=== PATIENT | male | born 1960 | race African-American/Black ===

== ENCOUNTER 2016-11-14 23:36 | Emergency (ER) | payer SELFPAY ==
[2016-11-15] MEDS ORDERED: Aspirin Low Dose CHEW TAB* 81 MG PO ONE (00:29)
[2016-11-15 01:39] LABS: Albumin 4.4 g/dL (3.2-5.2); BUN/Creatinine Ratio 11.5 (8-20); Calcium 9.5 mg/dL (8.6-10.3); EGFR African American 105.4 (>60); EGFR Non-African American 81.9 (>60); Globulin 2.9 g/dL (2-4); Magnesium 2.3 mg/dL (1.9-2.7); Total Bilirubin 0.3 mg/dL (0.2-1.0); Total Protein 7.3 g/dL (6.4-8.9)
[2016-11-15 01:41] LABS: Troponin I 0.01 ng/mL (<0.04)
[2016-11-15 01:43] LABS: Potassium 3.6 mmol/L (3.5-5.0)
[2016-11-15 03:00] LABS: Hematocrit 39 % (42-52); Hemoglobin 13.7 g/dl (14.0-18.0); Mean Corpuscular HGB Conc 35 g/dl (31-36); Mean Corpuscular Hemoglobin 40 pg (27-31); Mean Platelet Volume 7 um3 (7.4-10.4); Red Blood Count 3.43 10^6/ul (4.0-5.4); Red Cell Distribution Width 14 % (10.5-15); White Blood Count 6.5 10^3/ul (3.5-10.8)
[2016-11-15 03:01] LABS: Mean Corpuscular Volume 115 fL (80-94)
[2016-11-15 04:26] VITALS: BP 151/101
--- NOTE | 2016-11-15 05:56 | ED ---
Matthew Calderon Matthew, scribed for Kurtis Barroso on 11/15/16 at 0029 . HPI Chest Pain - HPI Summary HPI Summary: A 55 y/o male presents to the ED with intermittent chest pain since an hour ago. The pain is described fluttering and rated 6/10 in severity. The patient was sitting down when the pain began. He denies nausea, vomiting, dizziness, SOB , and diaphoresis. He doesn't normally have chest pain with exertion. The pain is worse with movements and deep breaths. No Hx of CAD, HTN, Diabetes. FHx of CAD. - History of Current Complaint Chief Complaint: EDChestPainROMI Time Seen by Provider: 11/15/16 00:16 Hx Obtained From: Patient Onset/Duration: Started Hours Ago, Atraumatic, Still Present Timing: Intermittent Initial Severity: Moderate Current Severity: Moderate Pain Intensity: 6 Pain Scale Used: 0-10 Numeric Chest Pain Location: Left Lateral Chest Pain Radiates: No Character: Fluttering Associated Signs and Symptoms: Positive: Chest Pain. Negative: Dizziness, Shortness of Breath, Diaphoresis, Nausea, Abdominal Pain - Allergy/Home Medications Allergies/Adverse Reactions: Allergies Allergy/AdvReac Type Severity Reaction Status Date / Time Penicillins Allergy Rash Verified 08/01/14 07:28 Shellfish Allergy Allergy Rash Verified 08/01/14 07:28 PMH/Surg Hx/FS Hx/Imm Hx Endocrine/Hematology History: Denies: Hx Diabetes Cardiovascular History: Denies: Hx Hypertension Infectious Disease History: No Infectious Disease History: Denies: Traveled Outside the [place] in Last 30 Days - Family History Known Family History: Positive: Cardiac Disease - Social History Alcohol Use: None Substance Use Type: Reports: None Smoking Status (MU): Never Smoked Tobacco Review of Systems Constitutional: Negative Negative: Skin Diaphoresis Eyes: Negative ENT: Negative Positive: Chest Pain Respiratory: Negative Negative: Shortness Of Breath Gastrointestinal: Negative Negative: Vomiting, Nausea Genitourinary: Negative Musculoskeletal: Negative Skin: Negative Neurological: Negative Psychological: Normal All Other Systems Reviewed And Are Negative: Yes Physical Exam Triage Information Reviewed: Yes Vital Signs On Initial Exam: Initial Vitals Temp Pulse Resp BP Pulse Ox 98.5 F 77 18 183/111 100 11/14/16 23:38 11/14/16 23:38 11/14/16 23:38 11/14/16 23:38 11/14/16 23:38 Vital Signs Reviewed: Yes Appearance: Positive: No Pain Distress Skin: Positive: Warm, Skin Color Reflects Adequate Perfusion, Dry Head/Face: Positive: Normal Head/Face Inspection Eyes: Positive: EOMI, ALIYAH ENT: Positive: Normal ENT inspection Neck: Positive: Supple, Nontender Respiratory/Lung Sounds: Positive: Clear to Auscultation, Breath Sounds Present Cardiovascular: Positive: RRR, Pulses are Symmetrical in both Upper and Lower Extremities Abdomen Description: Positive: Nontender, Soft, Other: - abdominal scars Bowel Sounds: Positive: Present Musculoskeletal: Positive: Normal, Strength/ROM Intact Neurological: Positive: Normal, Sensory/Motor Intact, Alert, Oriented to Person Place, Time Psychiatric: Positive: Affect/Mood Appropriate Diagnostics - Vital Signs Vital Signs Temp Pulse Resp BP Pulse Ox 11/14/16 23:38 98.5 F 77 18 183/111 100 - Laboratory Lab Results: Lab Results 11/15/16 11/15/16 11/15/16 Range/Units 01:00 01:00 01:00 WBC 6.5 (3.5-10.8) 10^3/ul RBC 3.43 L (4.0-5.4) 10^6/ul Hgb 13.7 L (14.0-18.0) g/dl Hct 39 L (42-52) % MCV 115 H (80-94) fL MCH 40 H (27-31) pg MCHC 35 (31-36) g/dl RDW 14 (10.5-15) % Plt Count 269 (150-450) 10^3/ul MPV 7 L (7.4-10.4) um3 Neut % (Auto) 60.2 (38-83) % Lymph % (Auto) 28.9 (25-47) % [place] % (Auto) 4.9 (1-9) % Eos % (Auto) 5.1 (0-6) % Baso % (Auto) 0.9 (0-2) % Absolute Neuts (auto) 3.9 (1.5-7.7) 10^3/ul Absolute Lymphs (auto) 1.9 (1.0-4.8) 10^3/ul Absolute Monos (auto) 0.3 (0-0.8) 10^3/ul Absolute Eos (auto) 0.3 (0-0.6) 10^3/ul Absolute Basos (auto) 0.1 (0-0.2) 10^3/ul Absolute Nucleated RBC 0.01 10^3/ul Nucleated RBC % 0.2 INR (Anticoag Therapy) 0.90 (0.89-1.11) APTT 35.2 (26.0-36.3) seconds Sodium 136 (133-145) mmol/L Potassium 3.6 (3.5-5.0) mmol/L Chloride 103 (101-111) mmol/L Carbon Dioxide 25 (22-32) mmol/L Anion Gap 8 (2-11) mmol/L BUN 11 (6-24) mg/dL Creatinine 0.96 (0.67-1.17) mg/dL Est GFR ( Amer) 105.4 (>60) Est GFR (Non-Af Amer) 81.9 (>60) BUN/Creatinine Ratio 11.5 (8-20) Glucose 101 H (70-100) mg/dL Calcium 9.5 (8.6-10.3) mg/dL Magnesium 2.3 (1.9-2.7) mg/dL Total Bilirubin 0.30 (0.2-1.0) mg/dL AST 28 (13-39) U/L ALT 32 (7-52) U/L Alkaline Phosphatase 98 (34-104) U/L Troponin I 0.01 (<0.04) ng/mL B-Natriuretic Peptide ( - 100) pg/mL Total Protein 7.3 (6.4-8.9) g/dL Albumin 4.4 (3.2-5.2) g/dL Globulin 2.9 (2-4) g/dL Albumin/Globulin Ratio 1.5 (1-3) 11/15/16 Range/Units 01:00 WBC (3.5-10.8) 10^3/ul RBC (4.0-5.4) 10^6/ul Hgb (14.0-18.0) g/dl Hct (42-52) % MCV (80-94) fL MCH (27-31) pg MCHC (31-36) g/dl RDW (10.5-15) % Plt Count (150-450) 10^3/ul MPV (7.4-10.4) um3 Neut % (Auto) (38-83) % Lymph % (Auto) (25-47) % [place] % (Auto) (1-9) % Eos % (Auto) (0-6) % Baso % (Auto) (0-2) % Absolute Neuts (auto) (1.5-7.7) 10^3/ul Absolute Lymphs (auto) (1.0-4.8) 10^3/ul Absolute Monos (auto) (0-0.8) 10^3/ul Absolute Eos (auto) (0-0.6) 10^3/ul Absolute Basos (auto) (0-0.2) 10^3/ul Absolute Nucleated RBC 10^3/ul Nucleated RBC % INR (Anticoag Therapy) (0.89-1.11) APTT (26.0-36.3) seconds Sodium (133-145) mmol/L Potassium (3.5-5.0) mmol/L Chloride (101-111) mmol/L Carbon Dioxide (22-32) mmol/L Anion Gap (2-11) mmol/L BUN (6-24) mg/dL Creatinine (0.67-1.17) mg/dL Est GFR ( Amer) (>60) Est GFR (Non-Af Amer) (>60) BUN/Creatinine Ratio (8-20) Glucose (70-100) mg/dL Calcium (8.6-10.3) mg/dL Magnesium (1.9-2.7) mg/dL Total Bilirubin (0.2-1.0) mg/dL AST (13-39) U/L ALT (7-52) U/L Alkaline Phosphatase (34-104) U/L Troponin I (<0.04) ng/mL B-Natriuretic Peptide 14 ( - 100) pg/mL Total Protein (6.4-8.9) g/dL Albumin (3.2-5.2) g/dL Globulin (2-4) g/dL Albumin/Globulin Ratio (1-3) Result Diagrams: 11/15/16 01:00 11/15/16 01:00 Lab Statement: Any lab studies that have been ordered have been reviewed, and results considered in the medical decision making process. - Radiology CXR Xray Interpretation: No Acute Changes Radiology Interpretation Completed By: ED Physician - EKG 00:19 Cardiac Rate: NL - 64 bpm EKG Rhythm: Sinus Rhythm ST Segment: Non-Specific Chest Pain Course/Dx - Course Assessment/Plan: A 55 y/o male presents to the ED with intermittent chest pain since an hour ago. The pain is described fluttering and rated 6/10 in severity. The patient was sitting down when the pain began. He denies nausea, vomiting, dizziness, SOB, and diaphoresis. He doesn't normally have chest pain with exertion. The pain is worse with movements and deep breaths. No Hx of CAD, HTN, Diabetes. FHx of CAD. Labs were reviewed and showed troponin of 0.01. EKG shows sinus rhythm at 64 bpm with non-specific ST changes. CXR showed no acute changes. Discussed with the patient that he needed to be admitted for second troponin, but he refused and left AMA. The patient was informed of the risks of leaving AMA numerous times. - Diagnoses Provider Diagnoses: Chest pain, Angina pectoris Discharge - Discharge Plan Condition: Fair Disposition: AGAINST MEDICAL ADVICE Referrals: Ceferino Mallory MD [Primary Care Provider] - The documentation as recorded by the Matthew fuentes Matthew accurately reflects the service I personally performed and the decisions made by Dharmesh prather Emmanuel.
--- NOTE | 2016-11-15 08:15 | RAD ---
Indication: Chest pain. Single frontal view of the chest performed at 0039 hours was reviewed. Comparison is made with previous exam dated November 19, 2007. No mediastinal shift is noted. Heart is of normal size and configuration. Lung sosa appear clear. IMPRESSION: NO ACTIVE CARDIOPULMONARY DISEASE IS NOTED.
== END 2016-11-15 04:22 | disposition left against medical advice (07) ==
LOC: ED 23:36
DX: I20.8 Other forms of angina pectoris (principal); R07.9 Chest pain, unspecified
CPT/HCPCS: 36415; 71010; 80053; 83735; 83880; 84484; 85025; 85610; 85730; 93005; 99283; A9270-GY

== ENCOUNTER 2019-07-11 15:55 | Emergency (ER) | payer BC ==
[2019-07-11 16:31] VITALS: BP 156/100
--- NOTE | 2019-07-11 17:22 | UC ---
FLU HPI - HPI Summary HPI Summary: 58 year old female with c/o increased sinus pain, pressure. Started " a few days ago". Worsening since onset. no fever, chills. + fatigue. - History of Current Complaint Chief Complaint: UCRespiratory Stated Complaint: URI Time Seen by Provider: 07/11/19 17:22 Pain Intensity: 0 - Allergy/Home Medications Allergies/Adverse Reactions: Allergies Allergy/AdvReac Type Severity Reaction Status Date / Time Penicillins Allergy Rash Verified 07/11/19 16:32 shellfish derived Allergy Rash Verified 07/11/19 16:32 PMH/Surg Hx/FS Hx/Imm Hx Previously Healthy: Yes - Surgical History Surgical History: Yes Surgery Procedure, Year, and Place: cholostomy 1989 - Family History Known Family History: Positive: Cardiac Disease - Social History Alcohol Use: None Substance Use Type: None Smoking Status (MU): Former Smoker When Did the Patient Quit Smoking/Using Tobacco: 15 years ago Review of Systems All Other Systems Reviewed And Are Negative: Yes Constitutional: Positive: Fatigue. Negative: Fever, Chills ENT: Positive: Nasal Discharge, Sinus Congestion, Sinus Pain/Tenderness. Negative: Sore Throat Respiratory: Positive: Cough Is Patient Immunocompromised?: No Physical Exam Triage Information Reviewed: Yes Appearance: No Pain Distress, Well-Nourished, Ill-Appearing - mild Vital Signs: Initial Vital Signs Temp 98.6 F 07/11/19 16:26 Pulse 85 07/11/19 16:26 Resp 16 07/11/19 16:26 BP 156/100 07/11/19 16:26 Pulse Ox 100 07/11/19 16:26 Vital Signs Reviewed: Yes Eyes: Positive: Conjunctiva Clear ENT: Positive: Pharynx normal, TMs normal, Sinus tenderness - b/l frontal, amx, Uvula midline. Negative: Pharyngeal erythema, Tonsillar swelling, Tonsillar exudate Neck: Positive: Supple, Nontender, No Lymphadenopathy. Negative: Nuchal Rigidity, Enlarged Nodes @ Respiratory: Positive: Chest non-tender, Lungs clear, Normal breath sounds, No respiratory distress, No accessory muscle use. Negative: Crackles, Rhonchi, Stridor, Wheezing Cardiovascular: Positive: RRR, No Murmur Neurological Exam: Normal Psychological Exam: Normal Skin Exam: Normal Flu Course/Dx - Course Course Of Treatment: Sinusitis: - Increase fluid intake - Antibitoics as directed - Return or follow up with your primary physician within 3-4 days if you do not improve - Go to ER with increased pain, fever > 102 - over the counter medications for symptoms relief. - Differential Dx/Diagnosis Differential Diagnosis/HQI/PQRI: Upper Respiratory Infection Provider Diagnosis: Sinusitis Discharge ED - Sign-Out/Discharge Documenting (check all that apply): Patient Departure All imaging exams completed and their final reports reviewed: No Studies - Discharge Plan Condition: Good Disposition: HOME Prescriptions: Azithromyxin VIVIANA (NF) [Z-Viviana (Zithromax) 250 mg tabs #6] 2 tab PO .TODAY, THEN 1 DAILY #6 tab Patient Education Materials: Sinusitis (ED) Referrals: Ceferino Mallory MD [Primary Care Provider] - Additional Instructions: - Increase fluid intake - Antibitoics as directed - Return or follow up with your primary physician within 3-4 days if you do not improve - Go to ER with increased pain, fever > 102 - over the counter medications for symptoms relief. - Billing Disposition and Condition Condition: GOOD Disposition: Home
== END 2019-07-11 17:34 | disposition short-term general hospital (02) ==
LOC: UCEAST 15:55
DX: J32.9 Chronic sinusitis, unspecified (principal); R53.83 Other fatigue; Z88.0 Allergy status to penicillin; Z91.013 Allergy to seafood; Z87.891 Personal history of nicotine dependence
CPT/HCPCS: 99212; G0463

== ENCOUNTER 2024-04-01 22:20 | Inpatient (IN) ==
[2024-04-01 22:43] LABS: Hemoglobin 13.8 g/dL (13.2-16.3); Mean Corpuscular Hgb Conc 34.4 g/dL (31-36); Mean Corpuscular Volume 116.5 fL (80-97); Mean Platelet Volume 6.6 fL (7.5-11.2); Platelet Count 295 10^3/uL (150-450); Red Blood Count 3.44 10^6/uL (4.06-5.63); Red Cell Distribution Width 14.7 % (12-17); White Blood Count 5.4 10^3/uL (3.6-10.2)
[2024-04-01 22:50] LABS: Activated Partial Thrombo Time 32.7 seconds (26.0-38.0); INR 0.95 (0.83-1.13)
[2024-04-01] MEDS: Iodixanol (CONTRAST) 320 MG/ML 100 ML SDV IV ONE (22:58)
[2024-04-01 23:20] LABS: ABS Eosinophils 0.2 10^3/uL (0.0-0.5); ABS Lymphocytes 2.5 10^3/uL (1.0-4.8); ABS Monocytes 0.4 10^3/uL (0.0-1.1); ABS Neutrophils 2.3 10^3/uL (1.5-7.6); ABS Nucleated RBC 0.01 10^3/ul; Anisocytosis 1+; Lymphocyte % 46.5 %; Macrocytosis 3+; Nucleated Red Blood Cells % 0.1 %/100WBC (0.0-0.8)
[2024-04-01 23:36] LABS: Albumin 4.7 g/dL (3.2-5.2); Albumin/Globulin Ratio 1.8 (1-3); Calcium 9.7 mg/dL (8.6-10.3); Creatinine, Serum 1.04 mg/dL (0.67-1.17); Direct Bilirubin 0.1 mg/dL (0.03-0.18); Globulin 2.6 g/dL (2-4); HDL Cholesterol 49.2 mg/dL; Indirect Bilirubin 0.2 mg/dL (0.3-1.0); Potassium 3.6 mmol/L (3.5-5.0); Total Bilirubin 0.3 mg/dL (0.2-1.0); Total Protein 7.3 g/dL (6.4-8.9); eGFR CKD-EPI 81.7 (>60)
[2024-04-02 06:38] LABS: ABS Eosinophils 0.2 10^3/uL (0.0-0.5); ABS Lymphocytes 1.5 10^3/uL (1.0-4.8); ABS Monocytes 0.3 10^3/uL (0.0-1.1); ABS Neutrophils 2.3 10^3/uL (1.5-7.6); Eosinophil % 3.6 %; Hematocrit 36.7 % (38-53); Lymphocyte % 35.8 %; Mean Corpuscular Hemoglobin 40.8 pg (27-33); Mean Corpuscular Hgb Conc 35.5 g/dL (31-36); Mean Corpuscular Volume 114.9 fL (80-97); Mean Platelet Volume 6.7 fL (7.5-11.2); Platelet Count 284 10^3/uL (150-450); Red Cell Distribution Width 14.5 % (12-17); White Blood Count 4.3 10^3/uL (3.6-10.2)
[2024-04-02 07:20] LABS: Calcium 9.3 mg/dL (8.6-10.3); Creatinine, Serum 0.88 mg/dL (0.67-1.17); Potassium 3.7 mmol/L (3.5-5.0); eGFR CKD-EPI 97.8 (>60)
[2024-04-02] MEDS: Sulfur Hexaflouride MICROSPHR 25 MG VIAL IV ONE (10:17)
[2024-04-02] MEDS: Enoxaparin 40 MG/0.4 ML SYR SUBCUT SCH (16:55)
[2024-04-02 23:53] LABS: Folate 11.6 ng/mL (5.90-24.80)
[2024-04-03 06:41] LABS: ABS Eosinophils 0.2 10^3/uL (0.0-0.5); ABS Lymphocytes 1.6 10^3/uL (1.0-4.8); ABS Monocytes 0.3 10^3/uL (0.0-1.1); ABS Neutrophils 2.7 10^3/uL (1.5-7.6); Eosinophil % 4.7 %; Hematocrit 38.9 % (38-53); Hemoglobin 13.7 g/dL (13.2-16.3); Lymphocyte % 32.8 %; Mean Corpuscular Hemoglobin 40.7 pg (27-33); Mean Corpuscular Hgb Conc 35.3 g/dL (31-36); Mean Corpuscular Volume 115.4 fL (80-97); Mean Platelet Volume 6.4 fL (7.5-11.2); Nucleated Red Blood Cells % 0.1 %/100WBC (0.0-0.8); Platelet Count 290 10^3/uL (150-450); Red Blood Count 3.38 10^6/uL (4.06-5.63); Red Cell Distribution Width 14.3 % (12-17); White Blood Count 4.8 10^3/uL (3.6-10.2)
[2024-04-03 06:51] LABS: Calcium 9.6 mg/dL (8.6-10.3); Creatinine, Serum 0.92 mg/dL (0.67-1.17); Magnesium 2.1 mg/dL (1.9-2.7); eGFR CKD-EPI 94.6 (>60)
[2024-04-03 14:27] VITALS: BP 165/102
[2024-04-03 16:37] LABS: Erythrocyte Sed Rate 8 mm/Hr (0-19)
[2024-04-03 23:21] LABS: TSH Ultra Thyroid Stim Horm 2.09 mcIU/mL (0.34-5.60)
[2024-04-03 23:26] LABS: Ferritin 37.7 ng/mL (24-336)
== END 2024-04-03 18:00 | disposition home or self-care (01) | DRG 47 ==
LOC: EDHOLD 22:20 → ED 22:20 → SUATTDRO 23:36 → OBSVTOIN 23:36 → MED 04-02 11:08
PROVIDERS: ADMIT Hospitalist; ATTEND Hospitalist